=== PATIENT | male | born 1995 | race Caucasian/White ===

== ENCOUNTER 2016-09-01 10:57 | Emergency (ER) | payer SELFPAY ==
[~2016-09-01] VITALS: Ht 180.3 cm; Wt 111.5 kg
[2016-09-01] MEDS ORDERED: SODIUM CHLORIDE 0.9% 1,000 ML IV ONE (11:26)
[2016-09-01] MEDS ORDERED: ONDANSETRON 2MG/ML, 2ML IVPush ONE (11:30)
[2016-09-01] MEDS ORDERED: MORPHINE SULFATE 4 MG/ML, 1ML IVPush PRN (11:30)
[2016-09-01] MEDS ORDERED: LORazepam 2 MG/ML, 1ML IVPush ONE (11:30)
[2016-09-01] MEDS ORDERED: ONDANSETRON 2MG/ML, 2ML ONE (12:04)
[2016-09-01] MEDS ORDERED: MORPHINE SULFATE 4 MG/ML, 1ML ONE (12:04)
[2016-09-01] MEDS ORDERED: LORazepam 2 MG/ML, 1ML ONE (12:05)
[2016-09-01 12:20] LABS: BLOOD UREA NITROGEN 20 mg/dL (7-18)
[2016-09-01 12:25] LABS: ASPARTATE AMINO TRANSFERASE 23 U/L (15-37)
[2016-09-01 12:26] LABS: IS PT STATUS REG ER OR PRE ER? YES
[2016-09-01 13:34] VITALS: BP 108/46
== END 2016-09-01 13:23 | disposition home or self-care (01) ==
LOC: ED 12:57
DX: G44.219 Episodic tension-type headache, not intractable (principal); M94.0 Chondrocostal junction syndrome [Tietze]; R07.89 Other chest pain
CPT/HCPCS: 36415; 70450; 71010; 80053; 84484; 85025; 85610; 93005; 96361; 96374; 96375; 99285; J2060; J2405; J7030